=== PATIENT | male | born 1930 | race Two or more races ===

== ENCOUNTER 2017-04-22 21:43 | Emergency (ER) | payer MEDICARE, MEDICAID ==
[~2017-04-22] VITALS: Ht 177.8 cm; Wt 54.4 kg
[2017-04-22 21:56] VITALS: BP 124/51
[2017-04-22] MEDS ORDERED: LIDOCAINE 1% INJ 50 ML MDV IJ ONE (22:14)
[2017-04-22] MEDS ORDERED: TDAP [DIPH/PERTUSSIS/TET] 0.5 ML VIAL IM ONE ×2 (22:30→22:39)
[2017-04-22] MEDS ORDERED: LIDOCAINE 1%-EPI 1:100,000 50 ML VIAL IJ ONE (22:30)
[2017-04-22] MEDS ORDERED: MISCELLANEOUS MED 1 EA EA XX ONE (23:30)
[2017-04-23 00:37] VITALS: BP 120/64
== END 2017-04-23 00:38 ==
LOC: ER 21:47
DX: S01.81XA Laceration without foreign body of other part of head, initial encounter (principal); W22.8XXA Striking against or struck by other objects, initial encounter; Y93.89 Activity, other specified; Y92.89 Other specified places as the place of occurrence of the external cause; Y99.8 Other external cause status; I11.0 Hypertensive heart disease with heart failure; I50.9 Heart failure, unspecified; I25.2 Old myocardial infarction; J44.9 Chronic obstructive pulmonary disease, unspecified
CPT/HCPCS: 12011; 70450; 90471; 90715; 99082; 99284; A4606; A6402 ×2; J3490; Z7610

== ENCOUNTER 2017-06-10 09:55 | Emergency (ER) | payer MEDICARE, MEDICAID ==
[~2017-06-10] VITALS: Ht 167.6 cm; Wt 65.8 kg
--- NOTE | 2017-06-10 10:05 | NUR ---
AAOX3, BBPA FROM [place]: HEMAOMA TO R SIDE FOREHEAD S/P UNWITNESSED GLF.FOUND ON FLOOR @ 1200AM. RR IS EVEN AND UNLABORED WITH NAD NOTED. SKIN IS WARM AND DRY. PLACED ON CHANDLER MONITOR. DR CABRERA AT BS FOR EVAL.
--- NOTE | 2017-06-10 10:17 | NUR ---
PATIENT TRANSPORTED TO CT HEAD VIA GURNEY.
--- NOTE | 2017-06-10 10:23 | NUR ---
PATIENT IS BACK FROM CT SCAN. PATIENT REMAINS IN STABLE CONDITION AT .
--- NOTE | 2017-06-10 11:04 | NUR ---
CALLED FOR TRANSPORT. ETA [phone]
--- NOTE | 2017-06-10 11:20 | NUR ---
Patient discharged to FAMILY TO home in stable condition. Written and verbal after care instructions given. Patient AND FAMILY verbalized understanding of instruction.
[2017-06-10 11:22] VITALS: BP 128/61
== END 2017-06-10 11:25 | disposition home or self-care (01) ==
LOC: ER 09:57
DX: S00.83XA Contusion of other part of head, initial encounter (principal); I11.0 Hypertensive heart disease with heart failure; I50.9 Heart failure, unspecified; I25.2 Old myocardial infarction; J44.9 Chronic obstructive pulmonary disease, unspecified; Z93.1 Gastrostomy status; Z87.891 Personal history of nicotine dependence; W01.0XXA Fall on same level from slipping, tripping and stumbling without subsequent striking against object, initial encounter; Y93.89 Activity, other specified; Y92.89 Other specified places as the place of occurrence of the external cause; Y99.8 Other external cause status
CPT/HCPCS: 70450-TC; A4606; Z7610